=== PATIENT | female | born 2000 | race Caucasian/White ===

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

== ENCOUNTER → 2022-01-26 | Outpatient (REF) | payer OTHER ==
[~2022-01-26] MED LIST changes: +ARIP1TAB6; +CLON-412; -DOXY1CAP60 PO; +DOXY50CA51 PO; +NORG1TAB33
== END ==
LOC: M PLALAB 14:31
PROVIDERS: ATTEND Advanced Practice Midwife
DX: Z34.02 Encounter for supervision of normal first pregnancy, second trimester (principal)

== ENCOUNTER → 2022-01-26 | Outpatient (CLI) | payer OTHER ==
[2022-01-26 17:41] LABS: HEMATOCRIT 33.4 % (36.0-47.0); HEMOGLOBIN 11.1 g/dl (12.0-15.5); MEAN CORPUSCULAR HEMOGLOBIN 30.7 pg (27.0-33.0); MEAN CORPUSCULAR HGB CONC 33.2 g/dl (32.0-36.5); MEAN CORPUSCULAR VOLUME 92.5 fl (80.0-96.0); PLATELET COUNT, AUTOMATED 242 10^3/uL (150-450); RED BLOOD COUNT 3.61 10^6/uL (4.00-5.40); WHITE BLOOD COUNT 11.6 10^3/uL (4.0-10.0)
[2022-01-26 19:56] LABS: GC DNA AMPLIFICATION NEGATIVE (NEGATIVE)
[2022-01-26 20:04] LABS: HEPATITIS C VIRUS ABY INDEX < 0.0 INDEX (<0.8); HIV 1&2 SCREEN CENTAUR NEGATIVE (NEGATIVE)
== END ==
LOC: M PLALAB 14:47
PROVIDERS: ATTEND Advanced Practice Midwife
DX: Z34.02 Encounter for supervision of normal first pregnancy, second trimester (principal); Z3A.00 Weeks of gestation of pregnancy not specified

== ENCOUNTER → 2022-02-06 | Outpatient (CLI) | payer OTHER | LOC: M WHC 11:59 | PROVIDERS: ATTEND Advanced Practice Midwife | DX: Z34.02 Encounter for supervision of normal first pregnancy, second trimester (principal); Z3A.21 21 weeks gestation of pregnancy ==

== ENCOUNTER → 2022-03-03 | Outpatient (CLI) | payer OTHER | LOC: M WHC 11:58 | PROVIDERS: ATTEND Obstetrics & Gynecology | DX: Z36.2 Encounter for other antenatal screening follow-up (principal); Z3A.25 25 weeks gestation of pregnancy ==

== ENCOUNTER → 2022-03-29 | Outpatient (CLI) | payer OTHER ==
[2022-03-29 15:29] LABS: HEMATOCRIT 31.3 % (36.0-47.0); HEMOGLOBIN 10.3 g/dl (12.0-15.5); MEAN CORPUSCULAR HEMOGLOBIN 30.6 pg (27.0-33.0); MEAN CORPUSCULAR HGB CONC 32.9 g/dl (32.0-36.5); MEAN CORPUSCULAR VOLUME 92.9 fl (80.0-96.0); PLATELET COUNT, AUTOMATED 276 10^3/uL (150-450); RED BLOOD COUNT 3.37 10^6/uL (4.00-5.40); WHITE BLOOD COUNT 10.9 10^3/uL (4.0-10.0)
[2022-03-29 17:14] LABS: GC DNA AMPLIFICATION NEGATIVE (NEGATIVE)
== END ==
LOC: M PLALAB 13:06
PROVIDERS: ATTEND Obstetrics & Gynecology
DX: Z34.82 Encounter for supervision of other normal pregnancy, second trimester (principal)

== ENCOUNTER → 2022-05-24 | Outpatient (REF) | payer OTHER | LOC: M SFHCWAGY 12:56 | PROVIDERS: ATTEND Specialist | DX: Z34.03 Encounter for supervision of normal first pregnancy, third trimester (principal) ==

== ENCOUNTER 2022-06-18 10:47 | Inpatient (IN) | payer OTHER ==
[~2022-06-18] VITALS: Ht 162.6 cm; Wt 62.2 kg
[2022-06-18] VITALS (36 sets, daily range): BP systolic 93–132; BP diastolic 52–84
[2022-06-18] MEDS ORDERED: ZOLO25TA PO (11:11)
[2022-06-18] MEDS ORDERED: HOME MED LIST COMPLETE! XX SCH (11:20)
[2022-06-18 12:54] LABS: HEMATOCRIT 34.1 % (36.0-47.0); MEAN CORPUSCULAR HEMOGLOBIN 26.3 pg (27.0-33.0); MEAN CORPUSCULAR HGB CONC 32.3 g/dl (32.0-36.5); MEAN CORPUSCULAR VOLUME 81.4 fl (80.0-96.0); PLATELET COUNT, AUTOMATED 241 10^3/uL (150-450); RED BLOOD COUNT 4.19 10^6/uL (4.00-5.40); WHITE BLOOD COUNT 7.9 10^3/uL (4.0-10.0)
[2022-06-18] MEDS ORDERED: METHYLERGONOVINE MALEATE 0.2MG/ML 1ML VIAL IM PRN (13:05)
[2022-06-18] MEDS ORDERED: LIDOCAINE 1% MDV 20ML VIAL INFIL PRN (13:05)
[2022-06-18] MEDS ORDERED: OXYTOCIN DRIP 30 UNITS in IV 1 EA IV SCH (13:05)
[2022-06-18] MEDS ORDERED: OXYTOCIN DRIP 30 UNITS in IV 1 EA IV PRN (13:05)
[2022-06-18] MEDS ORDERED: TRANEXAMIC ACID INJection 1,000 MG in NS 100 ML IV PRN (13:05)
[2022-06-18] MEDS: LR 1,000 ML IV SCH ×2 (15:29→22:05)
[2022-06-18] MEDS ORDERED: ONDANSETRON 4MG 2ML VIAL IV PRN (18:00)
[2022-06-18] MEDS ORDERED: NALOXONE INJ 0.4MG/1ML VIAL IV PRN (18:00)
[2022-06-18] MEDS ORDERED: LR 500 ML IV PRN (18:00)
[2022-06-18] MEDS ORDERED: diphenhydrAMINE 50MG/ML VIAL IV PRN (18:00)
[2022-06-18] MEDS ORDERED: EPIDURAL/PCA KEYS XX PRN (18:00)
[2022-06-18] MEDS: FENTANYL/ROPIVACAINE/NACL BAG 100 ML EPIDURAL SCH (18:24)
[2022-06-18] MEDS: ePHEDrine SULFATE 25 MG/5 ML(5MG/ML) SYRINGE IVP PRN ×3 (21:58→22:07)
[2022-06-19] VITALS (13 sets, daily range): BP systolic 97–125; BP diastolic 52–84
[2022-06-19] MEDS: FENTANYL/ROPIVACAINE/NACL BAG 100 ML EPIDURAL SCH (01:25)
[2022-06-19] MEDS ORDERED: ANUSOL HC CREAM 30GM TOP PRN (03:40)
[2022-06-19] MEDS ORDERED: MOM 30ML SUSPENSION UDC PO PRN (03:40)
[2022-06-19] MEDS ORDERED: ACETAMINOPHEN TAB 650MG DOSE (2X325MG) PO PRN (03:40)
[2022-06-19] MEDS ORDERED: DIBUCAINE 1% OINTMENT 30GM TOP PRN (03:40)
[2022-06-19] MEDS ORDERED: IBUPROFEN 600MG TAB PO PRN (03:40)
[2022-06-19] MEDS ORDERED: RHOGAM 300MCG (1500IU) INJ IM SCH (03:40)
[2022-06-19] MEDS ORDERED: DOCUSATE SODIUM 100MG CAPSULE PO PRN (03:40)
[2022-06-19] MEDS ORDERED: ACETAMINOPHEN 500 MG TAB PO PRN (03:40)
[2022-06-19] MEDS ORDERED: METHYLERGONOVINE MALEATE 0.2 MG TAB PO PRN (03:40)
[2022-06-19] MEDS ORDERED: OXYTOCIN DRIP 30 UNITS in IV 1 EA IV SCH (03:40)
[2022-06-19] MEDS: PRENATAL VITAMINS CHEWABLE TABLET PO SCH (09:00)
[2022-06-19] MEDS: IBUPROFEN 800 MG TAB PO PRN (16:06)
[2022-06-20] MEDS: IBUPROFEN 800 MG TAB PO PRN (02:12)
[2022-06-20 06:00] VITALS: BP 107/61
[2022-06-20] MEDS: PRENATAL VITAMINS CHEWABLE TABLET PO SCH (09:32)
[2022-06-20] MEDS ORDERED: ACET1TAB55 PO (12:01)
[2022-06-20] MEDS ORDERED: IBUP80TA PO (12:01)
[2022-06-21] MEDS ORDERED: MEASLES,MUMPS,RUBELLA VACCINE INJ (MMR-II) SC.IMMUN ONE (09:00)
== END 2022-06-20 13:30 | disposition home or self-care (01) | DRG 560 ==
LOC: M LDO 10:47 → M LDI 12:03 → M OBS 06-19 04:48
PROVIDERS: ADMIT Obstetrics & Gynecology; ATTEND Obstetrics & Gynecology
PROC: 10E0XZZ Delivery of Products of Conception, External Approach (ICD-10-PCS; principal; 2022-06-19)
DX: O48.0 Post-term pregnancy (principal); O99.344 Other mental disorders complicating childbirth; F31.9 Bipolar disorder, unspecified; Z3A.40 40 weeks gestation of pregnancy; Z79.899 Other long term (current) drug therapy; O99.334 Smoking (tobacco) complicating childbirth; F17.290 Nicotine dependence, other tobacco product, uncomplicated; Z37.0 Single live birth

== ENCOUNTER → 2024-11-03 | Outpatient (CLI) | payer OTHER ==
[~2024-11-03] MED LIST changes: +ACET1TAB55 PO; +DOXY50CA50 PO; -DOXY50CA51 PO; +IBUP80TA PO; +ZOLO25TA PO
[2024-11-03 13:48] LABS: PLATELET COUNT, AUTOMATED 251 10^3/uL (150-450)
[2024-11-03 14:45] LABS: HIV 1&2 SCREEN NEGATIVE (NEGATIVE)
[2024-11-03 14:54] LABS: HEPATITIS C VIRUS ABY INDEX < 0.02 INDEX (<0.8)
[2024-11-03 15:03] LABS: Trichomonas vaginalis (AMP) NOT DETECTED (NEGATIVE)
[2024-11-03 15:26] LABS: GC DNA AMPLIFICATION NEGATIVE (NEGATIVE)
== END ==
LOC: M PLALAB 09:48
PROVIDERS: ATTEND Obstetrics & Gynecology
DX: Z34.80 Encounter for supervision of other normal pregnancy, unspecified trimester (principal); Z3A.00 Weeks of gestation of pregnancy not specified

== ENCOUNTER → 2024-12-01 | Outpatient (CLI) | payer OTHER | LOC: M WHC 11:30 | PROVIDERS: ATTEND Obstetrics & Gynecology | DX: Z36.89 Encounter for other specified antenatal screening (principal); Z3A.19 19 weeks gestation of pregnancy ==

== ENCOUNTER → 2024-12-04 | Outpatient (REF) | payer OTHER | LOC: M PLALAB 15:02 | PROVIDERS: ATTEND Student in an Organized Health Care Education/Training Program | DX: Z34.82 Encounter for supervision of other normal pregnancy, second trimester (principal) ==

== ENCOUNTER → 2024-12-04 | Outpatient (CLI) | payer OTHER ==
[~2024-12-04] MED LIST changes: +ECOT81TA5 PO; +PRENTAB9 PO
== END ==
LOC: M PLALAB 15:24
PROVIDERS: ATTEND Student in an Organized Health Care Education/Training Program
DX: Z36.89 Encounter for other specified antenatal screening (principal)

== ENCOUNTER 2024-12-18 16:04 | Emergency (ER) | payer OTHER ==
[~2024-12-18 16:04] MED LIST changes: -ECOT81TA5 PO; -PRENTAB9 PO
[2024-12-18] MEDS ORDERED: PRENTAB9 PO (16:54)
[2024-12-18] MEDS ORDERED: ECOT81TA5 PO (16:54)
== END 2024-12-18 16:14 | disposition admitted as inpatient to this hospital (09) ==
LOC: M ED 16:04
DX: Z53.21 Procedure and treatment not carried out due to patient leaving prior to being seen by health care provider (principal)

== ENCOUNTER 2024-12-18 16:21 | Outpatient (CLI) | payer OTHER ==
[~2024-12-18] VITALS: Ht 162.6 cm; Wt 56.7 kg
[2024-12-18 16:34] VITALS: BP 111/61
[2024-12-18] MEDS ORDERED: PRENTAB9 PO (16:54)
[2024-12-18] MEDS ORDERED: ECOT81TA5 PO (16:54)
[2024-12-18] MEDS ORDERED: HOME MED LIST COMPLETE! XX SCH (16:55)
== END 2024-12-18 17:31 | disposition home or self-care (01) ==
LOC: M LDO 16:21
PROVIDERS: ATTEND Obstetrics & Gynecology
DX: O26.892 Other specified pregnancy related conditions, second trimester (principal); M54.50 Low back pain, unspecified; Z3A.22 22 weeks gestation of pregnancy
CPT/HCPCS: 59025; G0463

== ENCOUNTER → 2025-01-02 | Outpatient (REF) | payer OTHER ==
[~2025-01-02] MED LIST changes: +ECOT81TA5 PO; +PRENTAB9 PO
[2025-01-02 16:59] LABS: Trichomonas vaginalis (AMP) NOT DETECTED (NEGATIVE)
[2025-01-02 17:22] LABS: GC DNA AMPLIFICATION NEGATIVE (NEGATIVE)
== END ==
LOC: M PLALAB 13:41
PROVIDERS: ATTEND Student in an Organized Health Care Education/Training Program
DX: Z34.80 Encounter for supervision of other normal pregnancy, unspecified trimester (principal)

== ENCOUNTER → 2025-01-30 | Outpatient (CLI) | payer OTHER ==
[2025-01-30 14:49] LABS: GLUCOSE CHALLENGE TEST 1 HOUR 74 MG/DL (LESS THAN 140)
[2025-01-30 14:51] LABS: PLATELET COUNT, AUTOMATED 246 10^3/uL (150-450)
[2025-01-30 15:25] LABS: HIV 1&2 SCREEN NEGATIVE (NEGATIVE)
[2025-01-30 15:33] LABS: HEPATITIS C VIRUS ABY INDEX < 0.02 INDEX (<0.8)
== END ==
LOC: M PLALAB 10:18
PROVIDERS: ATTEND Student in an Organized Health Care Education/Training Program
DX: Z34.80 Encounter for supervision of other normal pregnancy, unspecified trimester (principal)

== ENCOUNTER → 2025-02-16 | Outpatient (CLI) | payer OTHER | LOC: M WHC 11:50 | PROVIDERS: ATTEND Student in an Organized Health Care Education/Training Program | DX: Z34.82 Encounter for supervision of other normal pregnancy, second trimester (principal) ==

== ENCOUNTER → 2025-02-26 | Outpatient (CLI) | payer OTHER | LOC: M RAD 09:20 | PROVIDERS: ATTEND Student in an Organized Health Care Education/Training Program | DX: O36.5990 Maternal care for other known or suspected poor fetal growth, unspecified trimester, not applicable or unspecified (principal) ==

== ENCOUNTER 2025-02-27 12:32 | Outpatient (CLI) | payer OTHER ==
[~2025-02-27] VITALS: Ht 162.6 cm; Wt 59.0 kg
[~2025-02-27 12:32] MED LIST changes: +ACETAMINOPHEN 650 MG PO ONE; +ALBUTEROL SULFATE 2.5 MG/0.5 ML INH CONCENTRATE NEB SOLN INH PRN; +EPINEPHrine INJ 1 MG/ML 1ML AMP IM PRN; +diphenhydrAMINE 50 MG/ML VIAL IV PRN
[2025-02-27] MEDS: IRON SUCROSE 300 MG in NS 250 ML IV ONE (12:45)
[2025-02-27 14:39] VITALS: BP 97/54; O2SAT 99
== END 2025-02-27 14:40 | disposition home or self-care (01) ==
LOC: M INFU 12:32
PROVIDERS: ATTEND Obstetrics & Gynecology
DX: O99.019 Anemia complicating pregnancy, unspecified trimester (principal)
CPT/HCPCS: 96365; 96366; J1756

== ENCOUNTER → 2025-03-05 | Outpatient (CLI) | payer OTHER ==
[~2025-03-05] MED LIST changes: -ACETAMINOPHEN 650 MG PO ONE; -ALBUTEROL SULFATE 2.5 MG/0.5 ML INH CONCENTRATE NEB SOLN INH PRN; -EPINEPHrine INJ 1 MG/ML 1ML AMP IM PRN; -diphenhydrAMINE 50 MG/ML VIAL IV PRN
== END ==
LOC: M RAD 09:35
PROVIDERS: ATTEND Student in an Organized Health Care Education/Training Program
DX: O36.5990 Maternal care for other known or suspected poor fetal growth, unspecified trimester, not applicable or unspecified (principal); R07.89 Other chest pain; Z82.49 Family history of ischemic heart disease and other diseases of the circulatory system; Z3A.00 Weeks of gestation of pregnancy not specified

== ENCOUNTER 2025-03-06 11:59 | Outpatient (CLI) | payer OTHER ==
[~2025-03-06] VITALS: Ht 162.6 cm; Wt 61.0 kg
[~2025-03-06 11:59] MED LIST changes: +ALBUTEROL SULFATE 2.5 MG/0.5 ML INH CONCENTRATE NEB SOLN INH PRN; +EPINEPHrine INJ 1 MG/ML 1ML AMP IM PRN; +diphenhydrAMINE 50 MG/ML VIAL IV PRN
[2025-03-06 12:10] VITALS: BP 115/61; O2SAT 100
[2025-03-06] MEDS: ACETAMINOPHEN 650MG PO PRIOR TO INFUSION PO ONE (12:18)
[2025-03-06] MEDS: diphenhydrAMINE 25MG PO PRIOR TO INFUSION PO ONE (12:19)
[2025-03-06] MEDS: IRON SUCROSE 300 MG in NS 250 ML IV ONE (13:05)
[2025-03-06 14:55] VITALS: BP 116/54; O2SAT 98
== END 2025-03-06 14:55 | disposition home or self-care (01) ==
LOC: M INFU 11:59
PROVIDERS: ATTEND Obstetrics & Gynecology
DX: O99.019 Anemia complicating pregnancy, unspecified trimester (principal)
CPT/HCPCS: 96365; J1756

== ENCOUNTER → 2025-03-12 | Outpatient (CLI) | payer OTHER ==
[~2025-03-12] MED LIST changes: -ALBUTEROL SULFATE 2.5 MG/0.5 ML INH CONCENTRATE NEB SOLN INH PRN; -EPINEPHrine INJ 1 MG/ML 1ML AMP IM PRN; -diphenhydrAMINE 50 MG/ML VIAL IV PRN
== END ==
LOC: M WHC 16:35
PROVIDERS: ATTEND Student in an Organized Health Care Education/Training Program
DX: O36.5990 Maternal care for other known or suspected poor fetal growth, unspecified trimester, not applicable or unspecified (principal)

== ENCOUNTER 2025-03-13 11:45 | Outpatient (CLI) | payer OTHER ==
[~2025-03-13 11:45] MED LIST changes: +ALBUTEROL SULFATE 2.5 MG/0.5 ML INH CONCENTRATE NEB SOLN INH PRN; +EPINEPHrine INJ 1 MG/ML 1ML AMP IM PRN; +diphenhydrAMINE 50 MG/ML VIAL IV PRN
[2025-03-13 12:00] VITALS: BP 102/61; O2SAT 99
[2025-03-13] MEDS: diphenhydrAMINE 25MG PO PRIOR TO INFUSION PO ONE (12:10)
[2025-03-13] MEDS: ACETAMINOPHEN 650MG PO PRIOR TO INFUSION PO ONE (12:10)
[2025-03-13] MEDS: IRON SUCROSE 300 MG in NS 250 ML IV ONE (12:43)
[2025-03-13 14:26] VITALS: BP 102/87; O2SAT 96
== END 2025-03-13 14:24 ==
LOC: M INFU 11:45
PROVIDERS: ATTEND Obstetrics & Gynecology
DX: O99.019 Anemia complicating pregnancy, unspecified trimester (principal); Z3A.00 Weeks of gestation of pregnancy not specified
CPT/HCPCS: 96365; 96366; J1756

== ENCOUNTER → 2025-03-17 | Outpatient (REF) | payer OTHER ==
[~2025-03-17] MED LIST changes: -ALBUTEROL SULFATE 2.5 MG/0.5 ML INH CONCENTRATE NEB SOLN INH PRN; -EPINEPHrine INJ 1 MG/ML 1ML AMP IM PRN; -diphenhydrAMINE 50 MG/ML VIAL IV PRN
== END ==
LOC: M SFHCWAGY 10:09
PROVIDERS: ATTEND Advanced Practice Midwife
DX: Z3A.36 36 weeks gestation of pregnancy (principal)

== ENCOUNTER 2025-03-21 18:31 | Outpatient (CLI) | payer OTHER ==
[~2025-03-21] VITALS: Ht 162.6 cm; Wt 60.4 kg
[2025-03-21] MEDS ORDERED: HOME MED LIST COMPLETE! XX SCH (18:45)
[2025-03-21 19:31] VITALS: BP 104/56
== END 2025-03-21 19:48 | disposition home or self-care (01) ==
LOC: M LDO 18:31
PROVIDERS: ATTEND Obstetrics & Gynecology
DX: O36.8130 Decreased fetal movements, third trimester, not applicable or unspecified (principal); O26.893 Other specified pregnancy related conditions, third trimester; O99.013 Anemia complicating pregnancy, third trimester; O36.5930 Maternal care for other known or suspected poor fetal growth, third trimester, not applicable or unspecified; O99.343 Other mental disorders complicating pregnancy, third trimester; O99.333 Smoking (tobacco) complicating pregnancy, third trimester; N89.8 Other specified noninflammatory disorders of vagina; D50.9 Iron deficiency anemia, unspecified; F17.290 Nicotine dependence, other tobacco product, uncomplicated; F31.9 Bipolar disorder, unspecified; Z3A.35 35 weeks gestation of pregnancy
CPT/HCPCS: 59025; 76815; G0463

== ENCOUNTER → 2025-03-23 | Outpatient (CLI) | payer OTHER | LOC: M WHC 14:30 | PROVIDERS: ATTEND Student in an Organized Health Care Education/Training Program | DX: O36.5990 Maternal care for other known or suspected poor fetal growth, unspecified trimester, not applicable or unspecified (principal) ==